=== PATIENT | female | born 1980 | race Caucasian/White ===

== ENCOUNTER 2017-08-02 10:05 | Day surgery (SDC) | payer BC ==
[~2017-08-02] VITALS: Ht 175.3 cm; Wt 110.0 kg
[~2017-08-02 10:05] MED LIST: ALLEGRA ALLERG180 MG PO; LEXAPRO5 MG PO; MOTRIN800 MG PO; PLAN B ONE-STE1.5 MG PO
[2017-08-02] MEDS ORDERED: MIDOL COMPLETE1 EACH PO (10:31)
[2017-08-02 10:37] VITALS: BP 118/78
[2017-08-02 15:52] VITALS: BP 135/59
[2017-08-02 16:30] VITALS: BP 127/62
[2017-08-07 13:12] LABS: INTERNAL CONTROL VALID? YES
== END 2017-08-02 16:40 | disposition home or self-care (01) ==
LOC: SDC 10:05
PROVIDERS: Podiatrist Foot & Ankle Surgery
PROC: 0LU Tendons, Supplement (ICD-10-PCS; principal; 2017-08-02)
DX: M66.871 Spontaneous rupture of other tendons, right ankle and foot (principal); M76.71 Peroneal tendinitis, right leg; K21.9 Gastro-esophageal reflux disease without esophagitis; F41.9 Anxiety disorder, unspecified; Z88.0 Allergy status to penicillin
CPT/HCPCS: 84703; C1713; C1762; J0131; J1100; J1170; J1885; J2250; J2405; J2710; J2795; J3010; S0020